=== PATIENT | female | born 1930 | race Caucasian/White ===

== ENCOUNTER → 2018-06-13 | Day surgery (SDC) | payer OTHER, MEDICARE ==
--- NOTE | 2018-06-13 21:35 | OP ---
DATE OF OPERATION: 06/13/2018 PREOPERATIVE DIAGNOSIS: Left breast mass, 3 o'clock, 5 cm from the nipple. POSTOPERATIVE DIAGNOSIS: Left breast mass, 3 o'clock, 5 cm from the nipple. PROCEDURE: Left breast ultrasound-guided core biopsy with clip placement. ANESTHESIA: Local. ATTENDING SURGEON: Azar John MD ESTIMATED BLOOD LOSS: Minimal. COMPLICATIONS: None. Patient was made aware of the risks and benefits of the procedure and consented. The patient was placed in the supine position. Under sterile conditions and 1% lidocaine for local anesthesia, a small julio cesar was made in the skin. Using a 13-gauge biopsy device in the lateral approach under ultrasound guidance, multiple cores were obtained and submitted to Pathology. Likewise, under ultrasound guidance, a clip was placed into the biopsy region. It was well-tolerated by patient. Steri-Strips and sterile bandage were applied. We will contact her with results. AZAR JOHN M.D. [id number]
--- NOTE | 2018-06-15 15:16 | PATH ---
Surgical Pathology Report Patient Name: ZEFERINO GARCIA [facility]. Rec. #: [id number] /Age/Gender: 1930 (Age: 87) / F Account: [id number] Location: [facility] Taken: 06/13/2018 Received: 06/13/2018 Reported: 06/15/2018 Physicians: Man Baldwin M.D. Specimen(s) Received LEFT BREAST CORE BIOPSY 3N5 Clinical History Nonpalpable lesion Ultrasound findings: Suspicious Final Diagnosis BREAST, LEFT, 3:00, 5 CM FN, CORE BIOPSY: INVASIVE DUCTAL CARCINOMA, MODERATELY DIFFERENTIATED WITH CRIBRIFORM FEATURES AND ASSOCIATED CALCIFICATIONS. (SEE NOTE) INVASIVE CARCINOMA MEASURES 7 MM IN GREATEST DIMENSION IN THIS MATERIAL. Note: Myoepithelial immunohistochemical markers (SMM-HC and p63, performed at [facility]) demonstrate the lack of myoepithelial cells in the invasive carcinoma. This finding supports the diagnosis. Results of ER and SD studies performed at [facility] are as follows: ER (clone [id number] mouse monoclonal antibody by Leica): 100 % nuclear staining with strong intensity (Positive). SD (clone16 mouse monoclonal antibody by [employer]ica): 100 % nuclear staining with strong intensity (Positive). Results of Her2 & Ki67 studies will be reported separately in an addendum. Positive and negative controls (internal if applicable) show appropriate results. Formalin fixation and cold ischemic times are within current ASCO/CAP recommendations for ER, SD and Her2 testing. Electronically Signed Dyan Chaparro M.D. Addendum Reported: 06/16/2018 Addendum Diagnosis Results of Her2 (IHC) & Ki-67 studies performed at [place], [place] ([id number]) are as follows: Her2 IHC (EP3 from [employer], formerly known as [id number], using Lopez Polymer Refine detection kit): 2+ (equivocal). Ki-67: ~5% (low proliferative index). Results of Her2 FISH studies will be reported separately in an additional addendum. Positive and negative controls (internal if applicable) show appropriate results. Dyan Chaparro M.D. Gross Description Received in formalin labeled "left breast biopsy 3:00, 5 cmfn," is a 2.0 x 1.5 x 0.3 cm aggregate of multiple parra-yellow, irregular to cylindrical portions of fibroadipose tissue. The formalin is filtered and the specimen is entirely submitted in one cassette. Time to formalin fixation: < 1 minute Total formalin fixation time: Approximately 26 hours. 06/14/201806/14/2018
== END | disposition home or self-care (01) ==
LOC: FRADUS-SUR 14:52
PROVIDERS: ATTEND Surgery Surgical Oncology
PROC: 0HBU3ZX Excision of Left Breast, Percutaneous Approach, Diagnostic (ICD-10-PCS; principal; 2018-06-13)
DX: C50.812 Malignant neoplasm of overlapping sites of left female breast (principal); Z17.0 Estrogen receptor positive status [ER+]; N63.20 Unspecified lump in the left breast, unspecified quadrant
CPT/HCPCS: 19083; 87899; 88305-TC; 88341-TC; 88342-TC; A4648

== ENCOUNTER 2018-06-29 11:00 | Inpatient (IN) | payer OTHER, MEDICARE ==
--- NOTE | 2018-06-26 09:21 | HP ---
Admitting History and Physical - Primary Care Physician PCP: Rohan hCeek - Admission Chief Complaint: left breast cancer History of Present Illness: Patient is an 87 yo female who noted spontaneous left bloody nipple discharge in May. Mammo and US revealed a highly suspicious breast mass at the 3 oclock position. Patient underwent an US guided core bx on 06/13 which was positive for invasive ductal carcinoma ER and [place] positive. Her 2 negative. The MRI was c/w known cancer as well as an additional left anterior lesion for which an US guided core was recommended. The patient has opted to have a left mastectomy without reconstuction, snbx with possible andx. History Source: Patient Limitations to Obtaining History: No Limitations - Past Medical History Cardiovascular: Yes: AFIB - Past Surgical History Past Surgical History: Yes: Hysterectomy (JACKLYN/BSO () sec to benign mass.) Additional Past Surgical History: colon resection sec to benign mass - Smoking History Smoking history: Never smoked Home Medications - Allergies Allergies/Adverse Reactions: Allergies Allergy/AdvReac Type Severity Reaction Status Date / Time No Known Allergies Allergy Verified 06/26/18 09:27 - Home Medications Home Medications (free text): metoprolol,. warfarin Family Disease History - Family Disease History Family Disease History: CA: Daughter (breast cancer at 55) Other Family History: niece-breast cancer 30s. cousin-breast cancer 40s Review of Systems - Review of Systems Constitutional: reports: No Symptoms Cardiovascular: reports: No Symptoms Respiratory: reports: No Symptoms Musculoskeletal: reports: Joint Pain Physical Examination Constitutional: Yes: Well Nourished Breast(s): Yes: Other (Full ptotic C-cup with left nipple retraction. Two palpable masses noted in the UOQ approx 1 cm each. No suspicious masses noted in the right breast. No suspicious adenopathy noted bilaterally.) Problem List - Problems (1) Breast cancer, left Code(s): C50.912 - MALIGNANT NEOPLASM OF UNSPECIFIED SITE OF LEFT FEMALE BREAST Qualifiers: Estrogen receptor status: positive Patient sex: female Assessment/Plan Plan: Left mastectomy, snbx, possible andx with lymphoscintogram
[2018-06-29] MEDS ORDERED: LIDOCAINE HCL/PF 2% SDV 5ML VIAL ONE (12:41)
[2018-06-29] MEDS ORDERED: KETOROLAC TROMETHAMINE 30 MG/1 ML VIAL ONE (12:41)
[2018-06-29] MEDS ORDERED: SODIUM CHLORIDE 0.9% P/F 10 ML VIAL IJ ONE (12:41)
[2018-06-29] MEDS ORDERED: DEXAMETHASONE SOD PHOSPHATE 4 MG/1 ML VIAL ONE (12:41)
[2018-06-29] MEDS ORDERED: ceFAZolin SODIUM 1 GM VIAL ONE (12:41)
[2018-06-29] MEDS ORDERED: ONDANSETRON 4 MG/2 ML VIAL ONE (12:41)
[2018-06-29] MEDS ORDERED: PROPOFOL 20 ML ONE (12:44)
[2018-06-29] MEDS ORDERED: ROCURONIUM BROMIDE 50 MG/5 ML VIAL ONE (13:12)
[2018-06-29] MEDS ORDERED: BUPIVACAINE HCL/PF 2.5 MG/ML - 30 ML VIAL IJ ONE ×2 (13:26→15:05)
[2018-06-29] MEDS ORDERED: ISOSULFAN BLUE 10 MG/ML VIAL SQ ONE (13:45)
[2018-06-29] MEDS ORDERED: BUPIVACAINE LIPOSOME/PF (EXPAREL) 266 MG/20 ML VIAL ONE (15:05)
[2018-06-29] MEDS ORDERED: oxyCODONE HCL 5 MG TABLET PO PRN ×3 (16:17→16:53)
[2018-06-29] MEDS ORDERED: ONDANSETRON 4 MG/2 ML VIAL IVPUSH PRN ×2 (16:17→16:53)
[2018-06-29] MEDS ORDERED: PROMETHAZINE HCL 25 MG/1 ML VIAL IVPUSH PRN (16:53)
[2018-06-29] MEDS: CEFAZOLIN 1 GM/D5W 1 GM/50 ML BAG IVPB SCH (20:57)
[2018-06-29] MEDS: ACETAMINOPHEN 325 MG TABLET (FP) PO PRN (21:39)
[2018-06-29] MEDS ORDERED: ZOLPIDEM TARTRATE 5 MG TABLET PO PRN (22:00)
--- NOTE | 2018-06-29 23:14 | OP ---
DATE OF OPERATION: 06/29/2018 PREOPERATIVE DIAGNOSIS: Left breast cancer, overlapping regions. POSTOPERATIVE DIAGNOSIS: Left breast cancer, overlapping regions. Status post mastectomy. PROCEDURE: Left breast total mastectomy without reconstruction and left axillary sentinel lymph node biopsy. ANESTHESIA: General endotracheal anesthesia. SURGEON: Jada Cheek M.D. PACKING LINE WORKER: Humberto Navarro COMPLICATIONS: There were no complications. DESCRIPTION OF PROCEDURE: Briefly, the patient is an 87-year-old G4, P4, post menopausal white female of [place] descent with a strong family history with her daughter who had breast cancer at age 55, as well as a niece who had breast cancer in her 30s and cousin had breast cancer in her 40s. The patient is on Coumadin for chronic atrial fibrillation and noted some bloody nipple discharge and has had some chronic left breast nipple retraction. On exam, she was noted to have a palpable mass towards the outer aspect of the left breast. A mammography and ultrasound confirmed a left breast 3 o'clock mass 5 cm from the nipple which was biopsied in May 2018 showing a moderately differentiated invasive ductal cancer which was ER/SC positive, HER2/anisa negative. She underwent an MRI showing another more anterior mass in the left breast, and the patient decided to go forward with a mastectomy and refused any reconstruction. She understood the need for a sentinel lymph node biopsy. The patient was brought in for the procedure on June 29, 2018, and first underwent a lymphoscintigraphy with a periareolar injection of technetium 99 at [facility] and was brought to the holding area at [place]. In the holding area, site verification was made, and informed consent was obtained. She was then brought into the operating room and laid on the OR table in a supine position. Venodynes were placed on the lower extremities prior to induction. She received a gram of Ancef prior to incision. She underwent general anesthesia and the left breast was sterilely prepped and draped in usual fashion. 3 mL of Lymphazurin blue injected intradermally around the periareolar region of the left breast nipple areolar complex, and massage was instituted. The left arm was carefully laid to the side and was placed in approximately 60 degree fashion with the patient comfortable prior to putting her to sleep. The right arm was tucked at her side due to some issues with her right arm and shoulder. The left axillary sentinel lymph node biopsy was first performed. An incision was made just below the hair-bearing area, and dissection was undertaken using the Neoprobe to direct the dissection. Two blue hot nodes were easily found, labeled sentinel lymph node number 1 and 2 in the level 1 region of the left axilla. The first sentinel lymph node had a 10-second gamma count of 2093, and the second sentinel lymph node had a 10-second gamma count of 327. There was a 3rd possible node removed which turned out to be fibrofatty tissue. First 2 nodes sent for frozen section came back benign, so no further nodes were removed. Background counts after removal of these nodes was 42, and hemostasis was achieved. At this point, a classical mastectomy incision was made, encompassing the entire nipple areolar complex in elliptical fashion. The skin flaps were raised superiorly to the level of the distal clavicle, medially to the level of the sternum, laterally to the level of the latissimus, and inferiorly below the level of the inframammary fold. The breast was taken out off pectoralis major muscle using electrocautery from medial to lateral, completely removed intact. It was oriented with a long lateral, short superior suture, and specimen radiographs showed removal of the clip in question. Hemostasis was achieved, and the wound was copiously irrigated with warm, sterile saline. At this point, the skin edges were trimmed to allow for good cosmetic closure. We did instill Exparel 20 mL which was diluted with another 20 mL of saline and 20 mL of 0.25% Marcaine which was injected instilled along the left chest wall into the pectoralis major muscle and subcutaneous tissue. Two Facundo drains were placed in the mastectomy wound, one underneath the flaps and one toward the axilla, and these were sutured to the skin using 3-0 nylon suture. The skin was then closed using interrupted 3-0 deep dermal Vicryl suture and a running 4-0 subcuticular Biosyn suture. Mastisol, Steri-Strips were applied over the wound, compressive dressing placed over this. She was placed in a chest wall binder postoperatively. The patient was extubated at the end of the case and brought to the postanesthesia care in stable condition. She will be admitted postoperatively for pain and wound management. All sponge and needle counts are correct at the end of the case, and estimated blood loss was about 30 mL. She was hemodynamically stable throughout and had good hemostasis. She will remain on Lovenox postoperatively and had been taken off the Coumadin 4 days prior to the surgery and placed on Lovenox preoperatively as well. JADA CHEEK M.D. [id number]
[2018-06-30] MEDS: CEFAZOLIN 1 GM/D5W 1 GM/50 ML BAG IVPB SCH ×4 (02:14→21:07)
[2018-06-30] MEDS: DEXTROSE 5%-0.45% SALINE 1,000 ML IV SCH ×2 (07:24→20:22)
[2018-06-30 08:27] LABS: HEMOGLOBIN 10.9 GM/dl (10.7-15.3); MCH 30.8 pg (25.7-33.7); MCHC 32.9 g/dl (32.0-36.0); MEAN CELL VOLUME 93.4 fl (80-96); MEAN PLT VOLUME 8.7 fl (7.5-11.1); PLATELET COUNT 188 K/MM3 (134-434); RBC 3.53 M/mm3 (3.60-5.2); RDW 13.9 % (11.6-15.6); WHITE BLOOD COUNT 9.4 K/mm3 (4.0-10.8)
[2018-06-30] MEDS: CHOLECALCIFEROL (VITAMIN D3) 1,000 UNIT TABLET (FP) PO SCH (09:20)
[2018-06-30] MEDS: OMEGA-3 ACID ETHYL ESTERS (FATTY-ACIDS) 1 GM CAPSULE (FP) PO SCH (09:20)
--- NOTE | 2018-06-30 09:50 | PN ---
Progress Note, Physician Chief Complaint: S/P left mastectomy with snbx POD#1 History of Present Illness: Patient was seen at the bedside and reports that she has no pain and is tolerating po well. - Current Medication List Current Medications: Active Medications Acetaminophen (Tylenol -) 650 mg PO Q4H PRN PRN Reason: FEVER Last Admin: 06/29/18 21:39 Dose: 650 mg Cholecalciferol (Vitamin D3 -) 2,000 unit PO DAILY [facility] Last Admin: 06/30/18 09:20 Dose: 2,000 unit Enoxaparin Sodium (Lovenox -) 60 mg SQ DAILY [facility] Cefazolin Sodium (Ancef 1 Gm Premixed Ivpb -) 1 gm in 50 mls @ 100 mls/hr IVPB Q6H-IV HANG Stop: 07/06/18 20:59 Last Admin: 06/30/18 09:20 Dose: 100 mls/hr Dextrose/Sodium Chloride (D5-1/2ns -) 1,000 mls @ 100 mls/hr IV ASDIR [facility] Last Admin: 06/30/18 07:24 Dose: Not Given Metoprolol Succinate (Toprol Xl -) 50 mg PO DAILY [facility] Last Admin: 06/30/18 09:29 Dose: Not Given Koglt-5-Pgti Ethyl Esters (Lovaza -) 1 gm PO DAILY [facility] Last Admin: 06/30/18 09:20 Dose: 1 gm Ondansetron HCl (Zofran Injection) 4 mg IVPUSH Q6H PRN PRN Reason: NAUSEA AND/OR VOMITING Oxycodone HCl (Roxicodone -) 5 mg PO Q4H PRN PRN Reason: PAIN LEVEL 6-10 Zolpidem Tartrate (Ambien -) 5 mg PO HS PRN PRN Reason: Insomnia - Objective Vital Signs: Vital Signs Temperature 98.4 F 06/30/18 09:38 Pulse Rate 86 06/30/18 09:38 Respiratory Rate 18 06/30/18 09:38 Blood Pressure 90/43 L 06/30/18 09:38 O2 Sat by Pulse Oximetry (%) 98 06/30/18 09:38 Constitutional: Yes: Well Nourished, Calm Breast(s): Yes: Other (Left mastectomy incision with steristrips intact. Mild ecchymosis noted. No discharge or erythema. JPs x 2 with serosanginous discharge noted.) Labs: CBC, BMP 06/30/18 07:33 Problem List - Problems (1) Breast cancer, left Code(s): C50.912 - MALIGNANT NEOPLASM OF UNSPECIFIED SITE OF LEFT FEMALE BREAST Qualifiers: Estrogen receptor status: positive Patient sex: female Assessment/Plan Assessment: S/P left mastectomy with snbx POD #1 Plan: OOB today with assistance Continue IV axbx Plan for discharge in am Lovenox as ordered SCDs while in bed. IS 10 xs hourly
[2018-06-30] MEDS ORDERED: HEPARIN NA (PORCINE) 5,000 UNITS/ML 1ML VIAL SQ SCH (10:00)
[2018-06-30] MEDS: ENOXAPARIN NA (PORCINE) 60 MG/0.6 ML DISP.SYRIN SQ SCH (10:40)
--- NOTE | 2018-06-30 11:01 | PN ---
Progress Note (short form) - Note Progress Note: ANESTHESIA POSTOP 87 YO female POD #1 s/p L mastectomy under GA Patient resting comfortably in bed. No pain. Tolerating PO VSS, Afebrile Continue current care. Encouraged IS and ambulation.
[2018-06-30] MEDS: ACETAMINOPHEN 325 MG TABLET (FP) PO PRN ×2 (14:08→23:36)
[2018-07-01] MEDS: CEFAZOLIN 1 GM/D5W 1 GM/50 ML BAG IVPB SCH ×2 (03:05→09:04)
[2018-07-01 08:51] VITALS: BP 127/56; PULSE 110; TEMP 98.1
[2018-07-01] MEDS: OMEGA-3 ACID ETHYL ESTERS (FATTY-ACIDS) 1 GM CAPSULE (FP) PO SCH (09:04)
[2018-07-01] MEDS: ACETAMINOPHEN 325 MG TABLET (FP) PO PRN (09:04)
[2018-07-01] MEDS: CHOLECALCIFEROL (VITAMIN D3) 1,000 UNIT TABLET (FP) PO SCH (09:04)
[2018-07-01] MEDS: ENOXAPARIN NA (PORCINE) 60 MG/0.6 ML DISP.SYRIN SQ SCH (09:05)
--- NOTE | 2018-07-05 13:19 | PATH ---
Surgical Pathology Report Patient Name: ZEFERINO GARCIA Med. Rec. #: [id number] /Age/Gender: 1930 (Age: 87) / F Account: [id number] Location: REPLACED BY [facility] Taken: 06/29/2018 Received: 06/29/2018 Reported: 07/05/2018 Physicians: Rohan Cheek M.D. Specimen(s) Received A: LEFT BREAST SENTINEL NODE # 1 (FS) B: LEFT BREAST SENTINEL NODE # 2 (FS) C: LEFT BREAST SENTINEL NODE # 3 (FS) D: LEFT MASTECTOMY Clinical History Breast invasive Intraoperative Consult Diagnosis A. Left breast, sentinel node #1, frozen section: One negative lymph node. B. Left breast, sentinel node #2, frozen section: One negative lymph node. C. Left breast, sentinel node #3, frozen section: Fibroadipose tissue. No lymph node tissue is identified. Dr. Chpaarro, 06/29/18 Final Diagnosis A. BREAST SENTINEL LYMPH NODE # 1, LEFT, EXCISION (FS): ONE LYMPH NODE NEGATIVE FOR CARCINOMA (0/1). B. BREAST SENTINEL LYMPH NODE # 2, LEFT, EXCISION (FS): ONE LYMPH NODE NEGATIVE FOR CARCINOMA (0/1). C. BREAST SENTINEL LYMPH NODE # 3, LEFT, EXCISION (FS): ONE SMALL LYMPH NODE, NEGATIVE FOR CARCINOMA (0/1). SEE COMMENT. D. BREAST, LEFT, MASTECTOMY: MULTIFOCAL INVASIVE DUCTAL CARCINOMA (2 FOCI), WELL DIFFERENTIATED WITH CRIBRIFORM FEATURES AND ASSOCIATED MICROCALCIFICATIONS (TUBULE SCORE: 2/3, NUCLEAR GRADE: 2/3, MITOTIC SCORE: 1/3; TOTAL ASHLIE SCORE: 5/9) AND ASSOCIATED MICROINVASIVE CARCINOMA (<1MM; 2 FOCI), PRESENT AT LOWER OUTER QUADRANT (LOQ). INVASIVE CARCINOMA RANGES IN SIZE FROM <1 MM TO 15 MM IN GREATEST MICROSCOPIC DIMENSION. EXTENSIVE DUCTAL CARCINOMA IN SITU (DCIS), MODERATELY DIFFERENTIATED, CRIBRIFORM AND FOCAL MICROPAPILLARY TYPES, WITH CENTRAL NECROSIS AND ASSOCIATED MICROCALCIFICATIONS, ADMIXED WITH INVASIVE CARCINOMA AND SURROUNDING IN BREAST TISSUE; PRESENT AT LOWER OUTER QUADRANT (LOQ). NO LYMPHOVASCULAR INVASION IDENTIFIED. SURGICAL MARGINS ARE UNINVOLVED BY CARCINOMA; INVASIVE CARCINOMA IS 1 MM FROM CLOSEST ANTERIOR AND 5 MM FROM DEEP MARGIN; DCIS IS 2 MM FROM CLOSEST DEEP AND ANTERIOR MARGINS. REMAINDER OF MARGINS ARE WIDELY FREE. SKIN AND NIPPLE PRESENT AND UNINVOLVED BY CARCINOMA. REMAINDER OF BREAST TISSUE SHOWS FOCAL ATYPICAL DUCTAL HYPERPLASIA IN A BACKGROUND OF FIBROCYSTIC CHANGES INCLUDING STROMAL FIBROSIS, MICROCYSTS, AND FOCAL COLUMNAR CELL CHANGES. PRIOR BIOPSY SITE CHANGES PRESENT. BLOOD VESSEL WALL WITH DYSTROPHIC CALCIFICATIONS. PATHOLOGIC STAGE (pTNM): pT1c(m) pN0 (sn). SEE INVASIVE CARCINOMA CASE SUMMARY BELOW. Comment: Part C, there is a small lymph node, best seen on deeper levels of the permanent sections. Part D, Total of 4 foci of invasive carcinoma identified, 2 of which are microinvasive (<1mm) and associated with extensive DCIS. Immunohistochemical stains performed and interpreted at [facility] show p63 and SMM-HC, shows loss of myoepithelial cells in areas of invasive and microinvasive carcinoma, while present within DCIS. Comments Breast Invasive Carcinoma: Surgical Pathology Case Summary (Based on AJCC TNM 8 th edition) Procedure _X_ Total mastectomy (including nipple-sparing and skin-sparing mastectomy) Specimen Laterality _X_ Left Tumor Size _X_ Greatest dimension of largest invasive focus >1 mm (millimeters): 15 mm Histologic Type _X_ Invasive carcinoma with cribriform features Histologic Grade (Stratton Histologic Score) Glandular (Acinar)/Tubular Differentiation _X_ Score 2 (10% to 75% of tumor area forming glandular/tubular structures) Nuclear Pleomorphism _X__ Score 2 Mitotic Rate _X__ Score 1 Overall Grade _X__ Grade 1 (scores of 5) Tumor Focality _X__ Multiple foci of invasive carcinoma Number of foci: 4 Sizes of individual foci: <1 mm, 2 mm, 15 mm Ductal Carcinoma In Situ (DCIS) _X_ DCIS is present in specimen _X_ Positive for extensive intraductal component (EIC) Margins Invasive Carcinoma Margins _X_ Uninvolved by invasive carcinoma Distance from closest margin (millimeters): 1 mm Closest margin: Anterior DCIS Margins _X_ Uninvolved by DCIS Distance from closest margin (millimeters): 2 mm Closest margin: Deep and anterior Regional Lymph Nodes _X_ Uninvolved by tumor cells Number of Lymph Nodes Examined: 3 Number of [place] Nodes Examined: 3 Treatment Effect _X_ No known presurgical therapy Lymphovascular Invasion _X_ Not identified Pathologic Stage Classification (pTNM, AJCC 8th Edition) Primary Tumor (Invasive Carcinoma) (pT) _X_ pT1c: Tumor >10 mm but =20 mm in greatest dimension Regional Lymph Nodes (pN) Category (pN) _X_ pN0: No regional lymph node metastasis identified or ITCs only Biomarker Studies Results of ER and KS studies performed on prior biopsy ([id number]) at [facility] are as follows: ER (clone 6F11 mouse monoclonal antibody by [employer]): 100% nuclear staining with strong intensity (Positive). KS (clone16 mouse monoclonal antibody by [employer]): 100% nuclear staining with strong intensity (Positive). Results of Her2 (IHC) & Ki-67 studies performed on prior biopsy ([id number]) at [place], [place] ([id number]) are as follows: Her2 IHC (EP3 from [employer], formerly known as [id number], using Lopez Polymer Refine detection kit): 2+ (Equivocal). Ki-67: ~5% (low proliferative index). Results of Her2 FISH studies performed at [facility] ([id number]) Her2: 2.6 CEP17: 2.1 Ratio: 1.2 Interpretation: Negative. Electronically Signed Stefany Benitez M.D. Gross Description A. Received fresh for frozen section evaluation, labeled "left breast, sentinel node #1" is a 2.4 x 0.8 x 0.4 cm lymph node with attached adipose tissue. The lymph node is bisected and frozen section is performed on the lymph node. The frozen section residue is entirely submitted in one cassette labeled FSA. B. Received fresh for frozen section evaluation, labeled "left breast, sentinel node #2" is a 1 x 0.5 x 0.3 cm lymph node with attached adipose tissue. The lymph node is bisected and frozen section is performed on the lymph node. The frozen section residue is entirely submitted in one cassette labeled FSB. C. Received fresh for frozen section evaluation, labeled "left breast, sentinel node #3" is a 1.5 x 1.3 x 0.3 cm portion of fibrofatty tissue. No lymph node tissue is identified. Frozen section is performed on the specimen. The frozen section residual is entirely submitted in one cassette labeled FSC. AE/06/29/2018 D. Received in formalin, labeled "left breast mastectomy," is a 548 g gram, 25 x 22 x 5 cm left mastectomy specimen with a short suture marking the superior aspect and long suture marking the lateral aspect of the specimen, per the surgeon. There is a 9 x 11 cm skin ellipse and 2 cm retroverted nipple present. No skin surface lesion is seen. The deep margin is inked black and the anterior soft tissue margin is inked blue. The specimen is serially sectioned from medial to lateral. Sectioning reveals a 2.5 x 1.5 x 1 cm white-parra, firm, fairly circumscribed mass at the lower outer quadrant (LOQ), associated with previous biopsy site, focally abutting the deep margin, 0.2 cm from anterior margin, and 4 cm from lateral margin. A separate 2 x 2 cm nodular area is identified within the same quadrant (LOQ), 1 cm from the main mass; 5 cm from closest deep and inferior margins. The remaining margins are widely free. Remainder of breast parenchyma is fibrofatty and unremarkable. Savings Counselor sections are submitted in 14 cassettes as follows: D1-4 mass (LOQ) with anterior and posterior margins. D5-6 mass (LOQ), D7-area adjacent mass, laterally, D8- area adjacent mass, medially, D9- separate nodular area (LOQ), 10-2 sections, UOQ, 11-2 sections, LIQ, 12-2 sections, UIQ, 13- skin, 14-nipple. Time in formalin: 3:39 pm Time to formalin fixation: 34 mins Total formalin fixation time: Between 15-16 hours. MLSAlva/06/30/2018 ebram/06/29/2018
== END 2018-07-01 10:30 | disposition home or self-care (01) | DRG 581 ==
LOC: FM/S 11:36
PROVIDERS: ADMIT Surgery Surgical Oncology; ATTEND Surgery Surgical Oncology
PROC: 0HTU0ZZ Resection of Left Breast, Open Approach (ICD-10-PCS; principal; 2018-06-29 13:30)
PROC: 07B60ZX Excision of Left Axillary Lymphatic, Open Approach, Diagnostic (ICD-10-PCS; 2018-06-29 13:30)
DX: C50.812 Malignant neoplasm of overlapping sites of left female breast (principal); Z17.0 Estrogen receptor positive status [ER+]
CPT/HCPCS: 36415; 78195-TC; 85027; 94760; A9541